=== PATIENT | female | born 1965 | race Caucasian/White ===

== ENCOUNTER → 2019-07-01 | Outpatient (CLI) | payer OTHER ==
[~2019-07-01] MED LIST: ACIPHEX 20 MG T20 MG PO; CLOBETASOL PROP60 G1 TP; NECON1 EAC4 PO; PREDNISONE 10 M10 M1 PO; ZOFRAN ODT4 MG PO; ZOLOFT100 MG PO; ZYRTEC10 M2 PO
== END ==
LOC: M.RAD 12:58
DX: Z12.31 Encounter for screening mammogram for malignant neoplasm of breast (principal); R05 Cough; I10 Essential (primary) hypertension

== ENCOUNTER → 2019-07-22 | Outpatient (CLI) | payer OTHER | LOC: M.RAD 08:54 | DX: J44.9 Chronic obstructive pulmonary disease, unspecified (principal); J18.9 Pneumonia, unspecified organism ==

== ENCOUNTER 2019-11-29 17:34 | Emergency (ER) | payer OTHER ==
[~2019-11-29] VITALS: Ht 170.2 cm; Wt 90.7 kg
[2019-11-29] MEDS ORDERED: BENICAR 5 MG5 M1 PO (17:47)
[2019-11-29] MEDS ORDERED: LEXAPRO 10 MG T10 M1 PO (17:47)
[2019-11-29] MEDS ORDERED: RAYOS5 MG PO (17:47)
[2019-11-29] MEDS ORDERED: FLONASE 0.05%50 MCG NARES (17:48)
[2019-11-29] MEDS ORDERED: DEXILANT60 MG PO (17:48)
[2019-11-29] MEDS ORDERED: KEFLEX500 M1 PO (18:27)
[2019-11-29] MEDS ORDERED: CENTANY30 GM TOP (18:27)
[2019-11-29 18:39] VITALS: BP 134/72
== END 2019-11-29 18:40 | disposition home or self-care (01) ==
LOC: M.ERS 17:34
DX: S51.832A Puncture wound without foreign body of left forearm, initial encounter (principal); Z79.899 Other long term (current) drug therapy; W01.198A Fall on same level from slipping, tripping and stumbling with subsequent striking against other object, initial encounter; Y93.89 Activity, other specified; Y92.89 Other specified places as the place of occurrence of the external cause; Y99.8 Other external cause status